=== PATIENT | female | born 1940 | race Caucasian/White ===

== ENCOUNTER → 2016-09-11 | Outpatient (CLI) | payer OTHER ==
[~2016-09-11] MED LIST: ACCUNEB SO1.25 MG/1 INH; ACIDOPHILUS1 EAC3 PO; ASPIRIN81 M2 PO; B COMPLEX1 EAC1 PO; CARVEDILOL25 MG PO; CYMBALTA60 MG PO; D3 DOTS2000 UNIT PO; DETROL LA2 MG PO; DETROL LA4 MG PO; GLYBURIDE 5 MG T5 M1 PO; HYDROCODON-ACE1 EAC7; JANUVIA25 MG PO; K-DUR 20 MEQ T20 MEQ PO; LASIX 40 MG TAB40 M2 PO; LEVOTHROID88 MCG PO; LEVOTHYROXIN0.112 M1 PO; NORVASC10 MG PO; PIOGLITAZONE15 MG PO; PRILOSEC 20 MG20 MG PO; TRAMADOL 50 MG50 MG PO; ULTRACET TABLET1 TAB PO; VALIUM5 MG; VICODIN 5-5001 EACH PO; VITAMIN B COMP1 EACH PO; VYTORIN 10-401 EACH PO
== END ==
LOC: RAD 11:39
DX: J90 Pleural effusion, not elsewhere classified (principal); I42.9 Cardiomyopathy, unspecified; R91.8 Other nonspecific abnormal finding of lung field

== ENCOUNTER → 2016-12-18 | Outpatient (CLI) | payer OTHER | LOC: RAD 13:05 | DX: C34.90 Malignant neoplasm of unspecified part of unspecified bronchus or lung (principal); J18.9 Pneumonia, unspecified organism; I51.7 Cardiomegaly ==

== ENCOUNTER → 2017-02-25 | Outpatient (CLI) | payer OTHER | LOC: LAB 16:02 | DX: J98.11 Atelectasis (principal); J18.9 Pneumonia, unspecified organism; R91.8 Other nonspecific abnormal finding of lung field ==

== ENCOUNTER → 2018-08-15 | Outpatient (CLI) | payer OTHER ==
[~2018-08-15] VITALS: Ht 170.2 cm; Wt 124.3 kg
[~2018-08-15] MED LIST changes: +ALBUTEROL2.5 MG/31 INH; +CENTRUM WOMEN1 EACH PO; +DIPROLENE 0.05%15 GM TOP; +IRON325 PO; +KLOR-CON 1010 MEQ PO; +KRILL OIL 3501 EACH PO; +SYMBICORT160 MCG/4. INH; +SYNTHROID150 MCG PO; +TRELEGY ELLIPT1 EACH INH; +VITAMIN D31000 UNIT PO; +VITAMIN K100 MCG PO; +[UNRECOGNIZED DRUG - OTHER] NASAL
--- NOTE | ~2018-08-15 | P ---
[facility] [place] [place] [address] PROCEDURE REPORT Name: ASHLI ASHBY Room #: REG DA Alejandro.#: [id number] Admission: 08/15/18 Attend Phys: Mynor Keller MD Discharge: Date of : 40 Report #: [id number] THIS REPORT FOR: //name// CC: Mynor Guillory BRIEF HISTORY: The patient is a 78-year-old woman with multiple medical problems with history of peptic ulcer disease and nonhealing ulcers in the past with abdominal pain. PREOPERATIVE DIAGNOSIS: History of ulcer disease and abdominal pain. POSTOPERATIVE DIAGNOSIS: Mild diffuse gastritis. MEDICATIONS: Deep sedation with propofol per anesthesia. SPECIMEN: Biopsy of the gastritis. ESTIMATED BLOOD LOSS: 3 mL. PROCEDURE: EGD with biopsy. FINDINGS: Prior to deep sedation, the procedure of upper endoscopy was discussed with the patient as well as the potential risks and its complications. She indicates she understands and desires to proceed. With the patient in the left lateral decubitus position, the Olympus video endoscope was inserted in the cervical esophagus under direct vision without difficulty. Examination of this organ throughout its entire length revealed normal esophageal mucosa down to the squamocolumnar junction. No ulcers or erosions were seen. Hiatus hernia was not seen. There was no evidence of Bee mucosa. The scope was advanced in the stomach, was examined on end view as well as retroflexed views. There was a little bit of bile in the stomach, but not an excessive amount. There were no retained solids or liquids. There was mild erythema throughout the stomach, but no ulcers or erosions. Upon retroflexion, no mass lesions were seen. Other than the erythema, no other mucosal injuries were seen within the stomach. The pylorus, duodenal bulb and postbulbar duodenal sweep down to the third portion was inspected and noted to be unremarkable. At that point, the scope was slowly withdrawn and careful circumferential views confirmed the above findings. The patient tolerated the procedure well. CONDITION OF THE PATIENT UPON DISCHARGE: Following procedure, the patient drowsy. She was then prepared for colonoscopy. INSTRUCTIONS TO THE PATIENT AND FAMILY AT THE TIME OF DISCHARGE: No evidence of [facility] [address] [place] [address] PROCEDURE REPORT Name: ASHLI ASHBY [facility] [id number] Admission: 08/15/18 Attend Phys: Mynor Keller MD Discharge: Date of : 40 Report #: [id number] ulcer disease today. Advised to continue her pantoprazole. Avoid use of nonsteroidals. Follow up on biopsies. Proceed with colonoscopy at this time. <ELECTRONICALLY SIGNED> By: Mynor Keller MD 08/19/18 1654 [id number] Mynor Keller MD /nt
--- NOTE | ~2018-08-15 | P ---
[facility] [place] [address] [place] [address] PROCEDURE REPORT Name: ASHLI ASHBY [facility] [id number] Admission: 08/15/18 Attend Phys: Mynor Keller MD Discharge: Date of : 40 Report #: [id number] THIS REPORT FOR: //name// CC: Mynor Guillory BRIEF HISTORY: The patient is a 78-year-old woman with multiple medical problems. She has a history of colon polyps. She has also recently been having diffuse abdominal pain. She has also had change in bowel habits and takes some sort of preparation at home to help her have a bowel movement. PREOPERATIVE DIAGNOSIS: Change in bowel habits, abdominal pain and history of colon polyps. POSTOPERATIVE DIAGNOSES: 1. Diminutive mid transverse colon polyps x 2. 2. Moderately severe left-sided diverticulosis coli. MEDICATIONS: Deep sedation with propofol per anesthesia. SPECIMEN: Polyps mid transverse colon x 2. ESTIMATED BLOOD LOSS: 3 mL. PROCEDURE: Colonoscopy to cecum and terminal ileum with biopsy. FINDINGS: Prior to deep sedation, procedure of colonoscopy was discussed with the patient as well as potential risks and its complications. She indicates she understands and desires to proceed. With the patient in the left lateral decubitus position, digital examination was completed, which revealed no abnormalities. Subsequently, the Olympus video colonoscope was introduced through rectum and advanced under direct vision to the cecum. Done with minimal difficulty. The cecum was identified by the ileocecal valve and the appendiceal orifice. I was able to visualize the distal segment of the terminal ileum and see a villous pattern. At that point, the scope was slowly withdrawn and careful circumferential views obtained. The brief view of the distal ileum revealed normal mucosa. The scope was withdrawn and as withdrawn the prep was noted to be good. The mucosa was within normal limits, normal vascular pattern and normal light reflex. No inflammatory lesions were seen. She was noted to have two diminutive polyps in the mid transverse colon removed by biopsy. The scope was further withdrawn and no additional neoplastic lesions were seen in the remainder of the colon. In the distal descending colon and sigmoid colon, there was moderately severe diverticular disease without endoscopic evidence of diverticulitis. The scope was withdrawn in the rectum. Upon retroflexion, no abnormalities were seen. [address] [address] PROCEDURE REPORT Name: ASHLI ASHBY Room #: REG [facility]#: [id number] Admission: 08/15/18 Attend Phys: Mynor Keller MD Discharge: Date of : 40 Report #: [id number] The scope was withdrawn. The patient tolerated the procedure well. CONDITION OF THE PATIENT UPON DISCHARGE: Following procedure, the patient drowsy and arousable. She will be discharged home when fully ambulatory. INSTRUCTIONS TO THE PATIENT AND FAMILY AT THE TIME OF DISCHARGE: We will follow up on the path of the polyps. However, at this point in life, she is not likely to benefit from continued routine surveillance colonoscopy. Colonoscopy could be considered if she had a problem that required further intervention. As far as her pain and change in bowels, I do not see any lesions to explain that problem. I suggest a high fiber diet. Suggest MiraLax or ____ on a daily basis. If symptoms persist, an agent such as Amitiza or Linzess may be helpful. She will return to the care of Dr. Car Guillory and return to see me as needed. Last colonoscopy was about 5 years ago. Withdrawal time from the cecum was 9 minutes and 10 seconds. <ELECTRONICALLY SIGNED> By: Mynor Keller MD 08/19/18 1654 0859 1128 Mynor Keller MD /nt
--- NOTE | ~2018-08-15 | PATH ---
[facility] [place] [address] PATHOLOGY RPT PROCEDURE Name: ASHLI ASHBY Room #: REG DA Sow#: [id number] Admission: 08/15/18 Date of : 40 Discharge: Report #: [id number] Path Case #: [id number] [facility] Accession Number: [id number] . 01 Material submitted: . PART A: BX OF GASTRITIS H/O ULCERS R/O H-PYLORI PART B: BX POLYP PROXIMAL TRANSVERSE COLON X2 . 01 Clinical history: . Pre-OP DX: Abdominal pain, polyps Post-OP DX: Gastritis, colon polyp, diverticulosis . 02 Diagnosis: A. Gastric mucosa, gastritis, history of ulcers R/O H. pylori, endoscopic biopsy: - Mild chronic gastritis. - Negative for intestinal metaplasia or atrophy. - Negative for Helicobacter pylori (properly controlled immunohistochemical stain performed). . B. Polyp, proximal transverse colon x 2, endoscopic biopsy: - One fragment showing a tubular adenoma without high-grade dysplasia. - One fragment showing a hyperplastic polyp without any dysplasia. (IUV:sonu; 08/18/2018) QMS/08/18/2018 . 02 Electronically signed: . Carmen Matthew MD, Pathologist NPI- [id number] . 01 Gross description: . A. Received in formalin labeled "Ramesh Ashli, BX gastritis, rule out H. pylori, rule out ulcer," are 6 segments of rojo soft tissue measuring 0.7 x 0.7 x 0.2 cm in aggregate dimensions and ranging from 0.2 to 0.4 cm in maximum dimension. The specimen is submitted entirely in cassette A1. . B. Received in formalin labeled "Ramesh Ashli, polyp BX proximal transverse colon x2," are 2 segments of rojo soft tissue measuring 0.7 x 0.3 x 0.2 cm in aggregate dimensions and ranging from 0.3 to 0.4 cm in maximum dimension. The specimen is submitted entirely in cassette B1. (TSD; 08/15/2018) TOB/TOB . 02 Pathologist provided ICD-10: K29.50, D12.3, K63.5 . 02 [place] [address] PATHOLOGY RPT PROCEDURE Name: RAMESHASHLI SHER Room #: REG CL Pasquale.#: [id number] Admission: 08/15/18 Date of : 40 Discharge: Report #: [id number] Path Case #: [id number] Specimen Comment: A courtesy copy of this report has been sent to Specimen Comment: [phone], . Specimen Comment: Report sent to / DR DORSEY Performed at: [address] [facility] [address], [place], [place] [id number] MD Anson Chow MD Phone: [phone] Performed at: [address] [facility] [address] [id number] MD Carmen Matthew MD Phone: [phone]
== END | disposition home or self-care (01) ==
LOC: GI 06:50
DX: D12.3 Benign neoplasm of transverse colon (principal); K63.5 Polyp of colon; K57.30 Diverticulosis of large intestine without perforation or abscess without bleeding; K29.50 Unspecified chronic gastritis without bleeding; I10 Essential (primary) hypertension; E11.9 Type 2 diabetes mellitus without complications; J44.9 Chronic obstructive pulmonary disease, unspecified; G47.33 Obstructive sleep apnea (adult) (pediatric); E03.9 Hypothyroidism, unspecified; E78.00 Pure hypercholesterolemia, unspecified; M79.7 Fibromyalgia; D64.9 Anemia, unspecified; K21.9 Gastro-esophageal reflux disease without esophagitis; Z90.710 Acquired absence of both cervix and uterus; Z86.010 Personal history of colon polyps; Z87.442 Personal history of urinary calculi; Z95.1 Presence of aortocoronary bypass graft; Z86.73 Personal history of transient ischemic attack (TIA), and cerebral infarction without residual deficits; Z85.118 Personal history of other malignant neoplasm of bronchus and lung; Z90.49 Acquired absence of other specified parts of digestive tract; Z98.890 Other specified postprocedural states; Z88.8 Allergy status to other drugs, medicaments and biological substances; Z79.82 Long term (current) use of aspirin; Z79.899 Other long term (current) drug therapy
CPT/HCPCS: 62110; 62900

== ENCOUNTER → 2019-04-28 | Outpatient (CLI) | payer OTHER, BC ==
[2019-04-28 09:21] LABS: WBC 4.6 thou/uL (4.0-11.0)
[2019-04-28 09:23] LABS: MCH 31.2 pg (26.0-34.0); MCHC 32.6 g/dL (28.0-37.0); MCV 95.6 fL (80.0-100.0); RBC 1.98 mil/uL (4.20-5.00); RDW 19.2 % (10.5-14.5)
[2019-04-28 09:30] LABS: HEMATOCRIT 18.9 % (37.0-47.0); HEMOGLOBIN 6.2 gm/dL (12.0-15.0)
[2019-04-28 09:36] LABS: CALCIUM 8.7 mg/dL (8.5-10.1); CREATININE 1.8 mg/dL (0.6-1.0); POTASSIUM 4.8 mmol/L (3.5-5.1)
[2019-04-28 09:38] LABS: APTT 27.2 Seconds (24.5-32.8); INR 1.1
[2019-04-28 12:10] LABS: BF NUCLEATED CELLS 160; BF RBC 479
[2019-04-28 12:15] LABS: SOURCE THORACENTESIS
[2019-04-28 12:16] LABS: CLARITY CLEAR; COLOR YELLOW; TOTAL VOLUME 55 mL
[2019-04-28 14:20] LABS: BF MACROPHAGE 81; BF NEUTROPHILS 5
[2019-04-29 09:56] LABS: SOURCE RIGHT CHEST
[2019-04-29 09:57] LABS: SOURCE RIGHT CHEST
[2019-04-29 22:07] LABS: BODY FLUID ALBUMIN 1.5 g/dL (()); BODY FLUID AMYLASE 16 U/L (()); BODY FLUID GLUCOSE 123 mg/dL (()); BODY FLUID LDH 65 IU/L (()); BODY FLUID PROTEIN 2.1 g/dL (())
--- NOTE | 2019-04-30 09:07 | PATH ---
[facility] [address] [place] [address] PATHOLOGY RPT PROCEDURE Name: ASHLI ASHBY Room #: REG DA Giordano.#: [id number] Admission: 04/28/19 Date of : 40 Discharge: Report #: [id number] Path Case #: [id number] Note [facility] Accession Number: [id number] TESTS RESULT FLAG UNITS REF RANGE LAB Clinician Provided Cytology Information No. of containers..01 Other (Miscellaneous) Source: 01 CHEST FLUID DIAGNOSIS: 02 CHEST FLUID NEGATIVE FOR MALIGNANT CELLS. MESOTHELIAL CELLS ARE PRESENT. Signed out by: 02 Kalyan Mcclendon MD, Pathologist NPI- [id number] Performed by: Aguilar Thomson Frame Stylist ([facility]) Gross description: 01 22 ML, YELLOW, CLEAR /LCS FLAG LEGEND: L-Low Normal,H-High Normal,LL-Alert Low,HH-Alert High <-Panic Low,>-Panic High,A-Abnormal,AA-Critical Abnormal Performed at: [address] [place] [address] Anson Chow MD, [address] [address] Carmen Matthew MD, Specimen Comment: A courtesy copy of this report has been sent to Specimen Comment: [phone], . Specimen Comment: Report sent to / DR GORMAN Performed at: [address], [place], [place] [id number] MD Anson Chow MD Phone: [phone]
== END | disposition home or self-care (01) ==
LOC: LAB 08:41
PROVIDERS: Pediatrics
DX: J90 Pleural effusion, not elsewhere classified (principal); Z79.899 Other long term (current) drug therapy; Z79.01 Long term (current) use of anticoagulants; Z88.8 Allergy status to other drugs, medicaments and biological substances; Z79.82 Long term (current) use of aspirin